=== PATIENT | male | born 1960 | race African-American/Black ===

== ENCOUNTER 2017-05-29 18:30 | Outpatient (CLI) | payer OTHER | END 2017-05-29 18:31 | disposition home or self-care (01) | LOC: SLEEPLAB 18:30 | PROVIDERS: ATTEND Internal Medicine | DX: G47.33 Obstructive sleep apnea (adult) (pediatric) (principal); E11.9 Type 2 diabetes mellitus without complications; I10 Essential (primary) hypertension; R09.02 Hypoxemia | CPT/HCPCS: 95806 ==

== ENCOUNTER 2017-07-15 20:30 | Outpatient (CLI) | payer OTHER | END 2017-07-15 20:31 | disposition home or self-care (01) | LOC: SLEEPLAB 20:30 | PROVIDERS: ATTEND Internal Medicine | DX: G47.33 Obstructive sleep apnea (adult) (pediatric) (principal); R53.83 Other fatigue; E11.9 Type 2 diabetes mellitus without complications; R06.83 Snoring | CPT/HCPCS: 95811 ==